=== PATIENT | male | born 1980 | race Caucasian/White ===

== ENCOUNTER 2024-03-04 08:52 | Outpatient (CLI) | payer OTHER ==
[~2024-03-04] VITALS: Ht 177.8 cm; Wt 88.5 kg
[2024-03-04 09:26] VITALS: PULSE 71; RESP 16; O2SAT 98
[2024-03-04 09:38] VITALS: PULSE 78; RESP 16
[2024-03-04] MEDS: albuterol 2.5 MG/3 ML nebule NEB ONE (09:42)
== END 2024-03-04 23:59 | disposition home or self-care (01) ==
LOC: RT 08:52
PROVIDERS: ATTEND Nurse Practitioner Family
DX: R06.2 Wheezing (principal)
CPT/HCPCS: 94060; 94760